=== PATIENT | male | born 1985 | race Caucasian/White ===

== ENCOUNTER 2016-10-15 05:31 | Emergency (ER) | payer SELFPAY ==
--- NOTE | ~2016-10-15 | EKG ---
PATIENT: LAURENT GARCIA UNIT #: [id number] Ventricular Rate: 81 BPM Atrial Rate: 81 BPM P-R Interval: 158 ms QRS Duration: 106 ms Q-T Interval: 416 ms QTC Calculation(Bezet): 483 ms P [place]: 84 degrees Calculated R [place]: 71 degrees Calculated T [place]: 58 degrees Diagnosis Line: sinus rhythm Diagnosis Line: Prolonged QT Diagnosis Line: Abnormal ECG Diagnosis Line: No previous ECGs available Diagnosis Line: Confirmed by SALOME RODRIGUEZ MD ([id number]) on Diagnosis Line: 10/15/2016 12:45:28 PM INTERPRETING MD: SUNG
--- NOTE | ~2016-10-15 | CT71 ---
[facility] A Service of [facility] RADIOLOGY TEXT RESULTS PATIENT: LAURENT GARCIA LOCATION: [place] : 89 UNIT #: [id number] AGE: [address]: Adiel Payne MD SEX: M ORDER DR: [id number] [facility]. [place], [place] [address] [id number] P MR#: [id number] Acc #: [id number] NAME: LAURENT GARCIA : 1985 SEX: M STUDY DATE/TIME: 10/15/2016 1:55 UNIT: [facility] ROOM: STUDY DESCRIPTION: CT Head Wo Contrast Attending Physician: Adiel Payne M.D. Ordering Physician: Adiel Payne M.D. MEDICAL IMAGING REPORT This report is preliminary unless electronic signature is present EXAM CT head, noncontrast, 10/15/2016 HISTORY 31-year-old male brought to the ED by EMS with acute mental status changes. Agitation and psychosis. Potential drug overdose. TECHNIQUE CT examination of the head without IV contrast. Positioning is suboptimal secondary to limited patient cooperation. This CT exam was performed with one or more of the following radiation dose reduction techniques: automatic control, adjustment of mA and/or kV according to patient size, and iterative reconstruction. FINDINGS The examination is negative. No evidence of intracranial hemorrhage, mass, mass effect, cerebral edema or hydrocephalus. No skull fracture. Mucosal thickening is present throughout the ethmoid sinuses. IMPRESSION Negative head CT examination. Dictated by... Raul Palacios M.D. THIS IS AN ELECTRONICALLY VERIFIED REPORT Raul Palacios M.D. at 10/15/2016 5:53 AM BERNABEW/viridiana TD: 10/15/2016 03:26 JOB #: [id number] MEDICAL IMAGING REPORT [facility] A Service of [facility] & [facility] RADIOLOGY TEXT RESULTS PATIENT: LAURENT GARCIA LOCATION: [place] : 89 UNIT #: [id number] AGE: [address]: Adiel Payne MD SEX: M ORDER DR: Page 1 of 1 COPY
[2016-10-15 01:36] LABS: BASOPHIL% 0.4 % (0-2.5); EOSINOPHIL% 0.2 % (0.0-7.0); HEMATOCRIT 44.8 % (38.0-50.0); HEMOGLOBIN 15.1 gm/dL (13.0-16.0); LYMPHOCYTE# 1.1 X10e3 (1.0-3.5); MEAN CELL VOLUME 87.3 FL (83-96); MEAN CORPUSCULAR HEMOGLOBIN 29.5 PG (28-34); MEAN CORPUSCULAR HGB CONC 33.8 g/dL (30-36); MEAN PLATELET VOLUME 8.1 FL (6.5-11.5); NEUTROPHIL# 8.2 X10e3 (1.5-7.1); NEUTROPHIL% 78.4 % (40-75); PLATELET COUNT 251 X10e3 (140-420); RED BLOOD COUNT 5.13 X10e (3.90-5.60); RED CELL DISTRIBUTION WIDTH 14.7 % (11.0-15.5); WHITE BLOOD COUNT 10.4 X10e3 (4.0-10.5)
[2016-10-15 01:38] LABS: DIFF IND NO
[2016-10-15 01:56] LABS: ALBUMIN SERUM 4.8 g/dL (3.5-5.0); ALKALINE PHOSPHATASE 118 U/L (32-92); ALT (SGPT) 144 U/L (10-40); AST (SGOT) 50 U/L (10-42); BILIRUBIN,TOTAL 1.9 mg/dL (0.2-2.0); BLOOD UREA NITROGEN 29 mg/dL (9-23); BUN/CREATININE RATIO 17.05; CALCIUM SERUM 9.5 mg/dL (8.4-10.2); CARBON DIOXIDE 23 mmol/L (22-31); CHLORIDE 103 mmol/L (100-111); CREATININE SERUM 1.7 mg/dL (0.6-1.4); GLOM FILT RATE Estimated 53.3 mL/min (>60); GLUCOSE FASTING 135 mg/dL (70-110); MAGNESIUM 2.1 mg/dL (1.6-3.0); PROTEIN TOTAL SERUM 9.4 g/dL (6.0-8.3); SALICYLATE <4.0 mg/dL; SODIUM 140 mmol/L (135-145)
[2016-10-15 02:03] LABS: ACETAMINOPHEN <10 ug/mL; ALCOHOL BLOOD <5 mg/dL ([, 0]); POTASSIUM 2.6 mmol/L (3.5-5.1)
[2016-10-15 03:10] LABS: POC - CKMB 3.5 ng/mL (0.0-7.9); POC - TROPONIN <0.05 ng/mL (<=0.05)
[2016-10-15 05:12] LABS: URINE SOURCE CLEAN CATCH
[2016-10-15 05:40] LABS: AMPHETAMINE POS (NEG); BARBITURATES NEG (NEG); BENZODIAZEPINES NEG (NEG); COCAINE NEG (NEG); MARIJUANA NEG (NEG); OPIATES NEG (NEG); TRICYCLIC ANTIDEPRESSANTS NEG (NEG); U METHADONE NEG (NEG)
[2016-10-15 05:51] LABS: URINE APPEARANCE SL HAZY; URINE BLOOD NEG (NEG); URINE COLOR AMBER; URINE GLUCOSE NORM (NORM); URINE KETONE 1+ (NEG); URINE LEUKOCYTE ESTERASE NEG (NEG); URINE NITRATE NEG (NEG); URINE PROTEIN 2+ (NEG); URINE UROBILINOGEN 8 MG/DL (NORM)
[2016-10-15 05:52] LABS: URINE BILIRUBIN NEG (NEG)
[2016-10-15 05:53] LABS: CULTURE INDICATED? NO; URBCS1 AUWI NEG /[HPF] (0-2); URINE SQUAMOUS EPITHELIAL CELL FEW /[HPF]; UWBCS1 AUWI 0-2 (0-5)
== END 2016-10-15 07:10 | disposition home or self-care (01) ==
LOC: CED 05:31
PROVIDERS: Emergency Medicine
DX: F23 Brief psychotic disorder (principal); E87.6 Hypokalemia
CPT/HCPCS: 36415; 51701; 70450; 80053; 80307; 81003; 82553; 83735; 84484; 85025; 93005; 96365; 96366; 96372; 99284; G0480; J3486